=== PATIENT | female | born 1980 | race Two or more races ===

== ENCOUNTER 2023-05-08 22:46 | Observation (INO) | payer OTHER, SELFPAY ==
[2023-05-08 22:52] VITALS: PULSE 135; O2SAT 86
[2023-05-08 22:56] VITALS: BP 110/80; PULSE 126; RESP 32; TEMP 37; O2SAT 97
[2023-05-08 23:00] VITALS: PULSE 125; RESP 48; O2SAT 99
[2023-05-08 23:10] VITALS: O2SAT 99
--- NOTE | 2023-05-08 23:14 | ECG_ITS ---
[facility] Test Date: 2023-05-08 Pat Name: SARAH MACEDO Department: Room: - Gender: Female Neurology Nurse: : 1980 Requested By: Siva Blum Order Number: [id number] Reading MD: JUAN ANG Measurements Intervals [place] Rate: 137 P: 162 HI: 172 QRS: 86 QRSD: 76 T: 40 QT: 314 QTc: 394 Interpretive Statements 1220 Rapid atrial rhythm 3114 Cannot rule out anterior myocardial infarction, age undetermined 9150 abnormal ECG No previous ECG available for comparison Electronically Signed On 05-12-2023 7:43:44 EDT by JUAN ANG
--- NOTE | 2023-05-08 23:16 | XR_ITS ---
The [address] [address] Patient Name: SARAH MACEDO MRN: [id number] date: 1980 Sex: F Assigned Patient Location: ER Current Patient Location: ER Accession/Order Number: [id number] Exam Date: 05/08/2023 23:25 Report Date: 05/08/2023 23:41 At the request of: RINA PATEL Procedure: XR chest 1V EXAM: XR chest 1V HISTORY: chest pain, fever, shortness of breath COMPARISON: None. TECHNIQUE: AP view of the chest FINDINGS: The level of inspiration is suboptimal. There is no focal airspace consolidation. The cardiomediastinal silhouette is not enlarged. No evidence of pleural effusion or pneumothorax are identified. No acute osseous abnormality. IMPRESSION: No acute cardiopulmonary process. Recommend follow up imaging if symptoms worsen or persist. Electronically authenticated by: DINO MIKE Date: 05/08/2023 23:41
[2023-05-08 23:35] LABS: Bilirubin Urine NEGATIVE (NEGATIVE); Blood Urine LARGE (NEGATIVE); Clarity Urine CLEAR (CLEAR); Color Urine BROWN (YELLOW); Glucose Urine UA 500 mg/dL (NEGATIVE); Ketones Urine 15 mg/dL (NEGATIVE); Leukocyte Esterase Urine MODERATE (NEGATIVE); Nitrite Urine POSITIVE (NEGATIVE); Protein Urine >=300 mg/dL (NEG/TRACE); Specific Gravity Urine >=1.030 (1.005-1.025)
[2023-05-08] MEDS: 0.9 % SODIUM CHLORIDE 1,000 ML 999 ML IV (23:36)
[2023-05-08] MEDS: CEFTRIAXONE 1,000 MG in 0.9 % SODIUM CHLORIDE 50 ML 100 MG IV (23:36)
[2023-05-08 23:40] LABS: Urine Microscopic Indicated YES
[2023-05-08 23:43] VITALS: BP 124/87; O2SAT 100
--- NOTE | 2023-05-08 23:43 | ED.GENADUL1 ---
HPI - General Adult General Chief complaint: Fever Stated complaint: poss sepsis, tachycardia Time Seen by Provider: 05/08/23 23:11 Source: patient Mode of arrival: walk-in Limitations: no limitations History of Present Illness HPI narrative: patient presents with fever and fast HR. She is an insulin dependent diabetic. She said that she has not been taking her insulin as prescribed because I just haven't been feeling god . Chart review and discussion with the patient i learned that the patient had ureteral stenting for treatment of kidney stone April 19, 2023. She had UTI and finished a course of antibiotics. She had been experiencing dark urine and frequent urination since the ureteral stenting. She saw the urologist for follow up and is supposed to see them again next week. She has not been on any additional antibiotics. The fever and fast HR began this morning. She also felt pain across the chest and shortness of breath this morning. her family finally convinced her to come tot the ED for evaluation. Her PCP is in [place]. Related Data Home Medications Medication Instructions Recorded Confirmed dulaglutide 1.5 mg/0.5 mL mg subcut 05/09/23 subcutaneous pen injector (Trulicity) flash glucose sensor (FreeStyle 05/09/23 05/09/23 Parveen 2 Sensor kit) insulin glargine 100 unit/mL (3 unit subcut 05/09/23 mL) subcutaneous pen (Lantus Solostar U-100 Insulin) metformin 1,000 mg tablet mg 05/09/23 ondansetron 4 mg disintegrating mg 05/09/23 tablet oxybutynin chloride 5 mg tablet mg 05/09/23 pen needle, diabetic 31 gauge x 05/09/23 05/09/23 sumatriptan succinate 50 mg tablet mg PO 05/09/23 tamsulosin 0.4 mg capsule mg PO 05/09/23 Allergies Allergy/AdvReac Type Severity Reaction Status Date / Time metronidazole [From Flagyl] Allergy Mild Rash Verified 05/08/23 22:56 [facility] Medical History (Updated 05/09/23 @ 01:46 by Rina Patel) Exam Narrative Exam Narrative: Nurses notes and vital signs reviewed and patient is not hypoxic. afebrile General: Well-appearing and in no apparent distress. Skin: Warm, dry, no pallor noted. No rash. Head: Normocephalic, atraumatic. Neck: Supple, non-tender. Eye: Pupils are equal, round and EOMI. No scleral icterus. Ears, Nose, Mouth, and Throat: Oral mucosa is dry Cardiovascular: tachycardia. Respiratory: Tachypnea but no accessory muscle use or respiratory distress. Lungs are clear to auscultation, no wheezing, rales or rhonchi Chest Wall: no tenderness, crepitus or subcutaneous emphysema Back: No midline thoracic or lumbar vertebral tenderness. Left CVA tenderness Musculoskeletal: normal ROM, no calf or popliteal tenderness, no lower extremity edema/swelling GI: Abdomen is soft, non-distended. Normal bowel sounds. No masses appreciated. No tenderness to palpation. No rebound, guarding, or rigidity noted. Neurological: A&O x4. No cranial nerve dysfunction observed. No truncal ataxia. Moves all extremities. Sensation intact. Psychiatric: Cooperative and interactive. Normal mood and affect. Constitutional Vital Signs - 24 hr 05/08/23 22:56 05/08/23 23:49 05/09/23 01:08 Temperature 98.6 F 97.6 F Pulse Rate Pulse Rate [Monitor] 126 H Respiratory Rate 32 H Blood Pressure 110/60 Blood Pressure [Right Arm] 110/80 H Pulse Oximetry 97 97 Oxygen Delivery Method Room Air Room Air 05/08/23 22:52 05/08/23 23:00 05/08/23 23:10 Temperature Pulse Rate 135 H 125 H Pulse Rate [Monitor] Respiratory Rate 48 H Blood Pressure Blood Pressure [Right Arm] Pulse Oximetry 86 L 99 99 Oxygen Delivery Method 05/08/23 23:43 05/08/23 23:43 05/09/23 00:12 Temperature Pulse Rate 119 H Pulse Rate [Monitor] Respiratory Rate 20 Blood Pressure 124/87 H 124/62 H Blood Pressure [Right Arm] Pulse Oximetry 100 Oxygen Delivery Method 05/09/23 00:37 05/09/23 00:40 05/09/23 00:50 Temperature Pulse Rate 109 H 111 H 108 H Pulse Rate [Monitor] Respiratory Rate 22 16 11 L Blood Pressure Blood Pressure [Right Arm] Pulse Oximetry Oxygen Delivery Method 05/09/23 01:00 05/09/23 01:10 05/09/23 01:20 Temperature Pulse Rate 101 H 103 H 101 H Pulse Rate [Monitor] Respiratory Rate 15 17 18 Blood Pressure Blood Pressure [Right Arm] Pulse Oximetry Oxygen Delivery Method 05/09/23 01:30 Temperature Pulse Rate 105 H Pulse Rate [Monitor] Respiratory Rate 19 Blood Pressure Blood Pressure [Right Arm] Pulse Oximetry Oxygen Delivery Method Course Vital Signs Vital signs: Vital Signs Pulse Rate 135 H 05/08/23 22:52 Pulse Oximetry 86 L 05/08/23 22:52 Temperature 97.6 F 05/09/23 01:08 Pulse Rate 105 H 05/09/23 01:30 Respiratory Rate 19 05/09/23 01:30 Blood Pressure 110/60 05/09/23 01:08 Pulse Oximetry 97 05/08/23 23:49 Oxygen Delivery Method Room Air 05/08/23 23:49 Medical Decision Making MDM Narrative Medical decision making narrative: Patient was placed on secured entrance monitor and EKG obtained. Blood drawn and sent for evaluation, including lactate and blood cultures presents protocol. chest x-ray obtained. The patient received normal saline IV fluid and IV Rocephin. WBC elevated at 12k. Left shift noted. Lactate elevated at 4.4. UA reveals acute UTI. She was ordered to receive a 2nd liter of NS IVF and Levaquin 750mg. D-dimer elevated so she was sent for CT angio chest. K+ 2.9. Glucose elevated >300. She is not in DKA. She was ordered to receive 8units regular insulin SQ. The patient's HR and RR improved following ED treatment. CTA chest negative for PE, pneumonia or other acute cardiopulmonary abnormality I informed the patient of her results and discussed her diagnosis and recommendation for admission. Her PCP is in [place] and does not come to [facility] so she will be admitted to Dr Jackson's service. Plan was to place a call to Dr Cardenas - the on-call telehospitalist - to discuss admission once the CTA was resulted. Dr Cardenas contacted @ [phone] to discuss the patient's case. I spoke with her @ [phone] and she agreed to have the patient admitted - requested obs stay on med/surg w telemetry. Medical Records Medical records reviewed: Yes I reviewed the patient's medical records Lab Data Lab results reviewed: Yes I reviewed the patient's lab results Labs: Lab Results 05/08/23 05/08/23 05/08/23 Range/Units 23:10 23:35 23:40 WBC 12.3 H (4.0-11.0) 10^3/uL RBC 4.23 (4.20-5.40) 10^6/uL Hgb 10.9 L (12.0-16.0) g/dL Hct 33.8 L (36.0-48.0) % MCV 79.9 L (81.0-99.0) fL MCH 25.8 L (26.7-34.0) pg MCHC 32.2 (29.9-35.2) g/dL RDW 15.7 H (11.0-15.0) % Plt Count 343 (150-450) 10^3/uL MPV 10.7 (9.5-13.5) fL Neut % (Auto) 82.9 H (43.0-75.0) % Lymph % (Auto) 9.4 L (20.5-60.0) % [place] % (Auto) 6.4 (1.7-12.0) % Eos % (Auto) 0.4 L (0.9-7.0) % Baso % (Auto) 0.2 (0.2-2.0) % Neut # (Auto) 10.2 H (1.4-6.5) 10^3/uL Lymph # (Auto) 1.2 (1.2-3.8) 10^3/uL [place] # (Auto) 0.8 (0.3-0.8) 10^3/uL Eos # (Auto) 0.1 (0.0-0.7) 10^3/uL Baso # (Auto) 0.0 (0.0-0.1) 10^3/uL Abs Immat Gran (auto) 0.08 H (0.00-0.03) 10^3/uL Imm/Tot Granulo (auto) 0.7 H (0.0-0.5) % D-Dimer 0.94 H* (<=0.59) mg/L FEU Sodium 132 L (136-145) mmol/L Potassium 2.9 L* (3.5-5.1) mmol/L Chloride 99 (98-107) mmol/L Carbon Dioxide 18.7 L (21.0-32.0) mmol/L Anion Gap 17.2 BUN 9.0 (7.0-18.0) mg/dL Creatinine 1.06 H (0.55-1.02) mg/dL Est GFR ( Amer) >60 (>=60) Est GFR (Non-Af Amer) 57 L (>=60) BUN/Creatinine Ratio 8.5 Glucose 332 H (74-106) mg/dL Lactate 4.4 H* (0.4-2.0) mmol/L Calcium 8.7 (8.5-10.1) mg/dL Total Bilirubin 0.7 (0.2-1.0) mg/dL AST 13 L (15-37) U/L ALT 17 (14-59) U/L Alkaline Phosphatase 94 (46-116) U/L Total Protein 7.6 (6.4-8.2) g/dL Albumin 3.1 L (3.4-5.0) g/dL Globulin 4.5 g/dL Albumin/Globulin Ratio 0.7 Urine Color Brown A (YELLOW) Urine Clarity Clear (CLEAR) Urine pH 6.0 (5.0-9.0) Ur Specific [place] >=1.030 A (1.005-1.025) Urine Protein >=300 A (NEG/TRACE) mg/dL Urine Glucose (UA) 500 A (NEGATIVE) mg/dL Urine Ketones 15 A (NEGATIVE) mg/dL Urine Occult Blood Large A (NEGATIVE) Urine Nitrite Positive A (NEGATIVE) Urine Bilirubin Negative (NEGATIVE) Urine Urobilinogen 1.0 (0.2-1.0) EU/dL Ur Leukocyte Esterase Moderate A (NEGATIVE) Urine RBC 10-20 A (0-2) #/HPF Urine WBC 20-50 A (NONE SEEN) #/HPF Ur Squamous Epith Cells Rare (NONE/RARE) #/LPF Urine Crystals None seen (None Seen) #/HPF Urine Bacteria Small A (NONE SEEN) #/HPF Urine Casts None seen (NONE SEEN) #/LPF Urine Mucus Moderate A (NONE SEEN) Ur Culture Indicated? Yes Imaging Data Chest x-ray: Attestation: I have reviewed the pertinent imaging results. Radiologist's impression: Patient Name: SARAH MACEDO MRN: [id number] date: 1980 Sex: F Assigned Patient Location: ER Current Patient Location: ER Accession/Order Number: [id number] Exam Date: 05/08/2023 23:25 Report Date: 05/08/2023 23:41 At the request of: RINA PATEL Procedure: XR chest 1V EXAM: XR chest 1V HISTORY: chest pain, fever, shortness of breath COMPARISON: None. TECHNIQUE: AP view of the chest FINDINGS: The level of inspiration is suboptimal. There is no focal airspace consolidation. The cardiomediastinal silhouette is not enlarged. No evidence of pleural effusion or pneumothorax are identified. No acute osseous abnormality. IMPRESSION: No acute cardiopulmonary process. Recommend follow up imaging if symptoms worsen or persist. Electronically authenticated by: DINO MIKE Date: 05/08/2023 23:41 cta chest: Radiologist's impression: Patient Name: SARAH MACEDO MRN: [id number] date: 1980 Sex: F Assigned Patient Location: ER Current Patient Location: ER Accession/Order Number: [id number] Exam Date: 05/09/2023 00:25 Report Date: 05/09/2023 01:37 At the request of: RINA PATEL Procedure: CT angio chest CT angio chest: 05/09/2023 12:25 AM EDT CLINICAL HISTORY: 42 years old Female with chest pain, elevated d-dimer. TECHNIQUE: CT angio chest was performed with axial CT images through the thorax as well as sagittal and coronal reformations also obtained after intravenous administration of contrast. Dose reduction techniques were achieved by using automated exposure control and/or adjustment of mA and/or kV according to patient size and/or use of iterative reconstruction technique. COMPARISON: Chest x-ray performed on this date. FINDINGS: The pulmonary arteries are well opacified with no evidence of filling defect to suggest pulmonary embolism. The thoracic aorta is normal in course and caliber without aneurysm or dissection. The heart appears normal with no evidence of pericardial effusion. There are no enlarged mediastinal lymph nodes. The tracheobronchial tree is patent. The lungs are clear. There is no consolidation, mass or pleural effusion. There is no pneumothorax. Cholecystectomy clips are present with the gallbladder surgically absent. The visualized portion of the upper abdomen is otherwise grossly unremarkable. The osseous structures are unremarkable. IMPRESSION: Normal CT thorax. No pulmonary embolus identified. Electronically authenticated by: ELOISA BURNHAM Date: 05/09/2023 01:37 ECG Data Interpretation: EKG interpretation: Emergency Department physician interpretation. Sinus tach at 137bpm. Normal axis, normal intervals and no ST segment elevation or depression. Discharge Plan Discharge Chief Complaint: Fever Clinical Impression: UTI (urinary tract infection), Hyperglycemia due to diabetes mellitus, Sepsis, Acute hypokalemia Patient Disposition: Admitted as Observation Time of Disposition Decision: 00:43
[2023-05-08 23:45] LABS: Bacteria Urine SMALL #/HPF (NONE SEEN); Crystals Seen? None Seen #/HPF (None Seen); Mucus Urine MODERATE (NONE SEEN); Squamous Epithelial Cell Urine RARE #/LPF (NONE/RARE); WBC Urine 20-50 #/HPF (NONE SEEN)
[2023-05-08 23:46] LABS: Cast Seen? NONE SEEN #/LPF (NONE SEEN); Urine Culture Indicated YES
[2023-05-08 23:49] VITALS: O2SAT 97
--- NOTE | 2023-05-08 23:55 | PC.NURSE ---
tachycardia imporoved. patient 111 compared to 150 at admission. blood pressure within normal range.
[2023-05-08 23:56] LABS: Hematocrit 33.8 % (36.0-48.0); Hemoglobin 10.9 g/dL (12.0-16.0); Mean Corpuscular Hemoglobin 25.8 pg (26.7-34.0); Mean Corpuscular Volume 79.9 fL (81.0-99.0); Red Blood Count 4.23 10^6/uL (4.20-5.40); White Blood Count 12.3 10^3/uL (4.0-11.0)
[2023-05-08 23:57] LABS: Basophils Percent Auto 0.2 % (0.2-2.0); Eosinophils Percent Auto 0.4 % (0.9-7.0); Immature Granulocytes Pct Auto 0.7 % (0.0-0.5); Lymphocytes Absolute Auto 1.2 10^3/uL (1.2-3.8); Lymphocytes Percent Auto 9.4 % (20.5-60.0); Mean Corpuscular HGB Conc 32.2 g/dL (29.9-35.2); Mean Platelet Volume 10.7 fL (9.5-13.5); Monocytes Percent Auto 6.4 % (1.7-12.0); Neutrophils Absolute Auto 10.2 10^3/uL (1.4-6.5); Neutrophils Percent Auto 82.9 % (43.0-75.0); Platelet Count 343 10^3/uL (150-450); Red Cell Distribution Width 15.7 % (11.0-15.0)
[2023-05-08 23:58] LABS: Eosinophils Absolute Auto 0.1 10^3/uL (0.0-0.7); Immature Granulocytes Abs Auto 0.08 10^3/uL (0.00-0.03); Monocytes Absolute Auto 0.8 10^3/uL (0.3-0.8)
[2023-05-09] VITALS (27 sets, daily range): BP systolic 108–124; BP diastolic 60–80; PULSE 94–119; RESP 11–23; TEMP 36.4–37.2; O2SAT 95–100; BMI 31.7
[2023-05-09 00:03] LABS: D Dimer 0.94 mg/L FEU (<=0.59)
--- NOTE | 2023-05-09 00:03 | CT_ITS ---
The [address] [address] Patient Name: SARAH MACEDO MRN: [id number] date: 1980 Sex: F Assigned Patient Location: ER Current Patient Location: Accession/Order Number: [id number] Exam Date: 05/09/2023 00:25 Report Date: 05/09/2023 01:37 At the request of: RINA PATEL Procedure: CT angio chest CT angio chest: 05/09/2023 12:25 AM EDT CLINICAL HISTORY: 42 years old Female with chest pain, elevated d-dimer. TECHNIQUE: CT angio chest was performed with axial CT images through the thorax as well as sagittal and coronal reformations also obtained after intravenous administration of contrast. Dose reduction techniques were achieved by using automated exposure control and/or adjustment of mA and/or kV according to patient size and/or use of iterative reconstruction technique. COMPARISON: Chest x-ray performed on this date. FINDINGS: The pulmonary arteries are well opacified with no evidence of filling defect to suggest pulmonary embolism. The thoracic aorta is normal in course and caliber without aneurysm or dissection. The heart appears normal with no evidence of pericardial effusion. There are no enlarged mediastinal lymph nodes. The tracheobronchial tree is patent. The lungs are clear. There is no consolidation, mass or pleural effusion. There is no pneumothorax. Cholecystectomy clips are present with the gallbladder surgically absent. The visualized portion of the upper abdomen is otherwise grossly unremarkable. The osseous structures are unremarkable. IMPRESSION: Normal CT thorax. No pulmonary embolus identified. Electronically authenticated by: ELOISA BURNHAM Date: 05/09/2023 01:37
[2023-05-09 00:06] LABS: Alanine Aminotransferase 17 U/L (14-59); Albumin Globulin Ratio 0.7; Albumin Level 3.1 g/dL (3.4-5.0); Alkaline Phosphatase 94 U/L (46-116); Aspartate Amino Transferase 13 U/L (15-37); BUN Creatinine Ratio 8.5; Bilirubin Total 0.7 mg/dL (0.2-1.0); Calcium 8.7 mg/dL (8.5-10.1); Carbon Dioxide 18.7 mmol/L (21.0-32.0); Estimated GFR (African America >60 (>=60); Estimated GFR (Non-African Ame 57 (>=60); Globulin 4.5 g/dL; Glucose 332 mg/dL (74-106); Total Protein 7.6 g/dL (6.4-8.2)
[2023-05-09 00:17] LABS: Lactate/Lactic Acid 4.4 mmol/L (0.4-2.0)
--- NOTE | 2023-05-09 00:40 | PC.NURSE ---
sepsis alert checklist complete. nursing operations supervisor chemical cleaning aware
[2023-05-09] MEDS: INSULIN REGULAR 300 UNITS/3 ML 8 UNIT SUBQ (00:51)
[2023-05-09 00:58] LABS: Sodium 132 mmol/L (136-145)
[2023-05-09 00:59] LABS: Anion Gap 17.2; Chloride 99 mmol/L (98-107); Potassium 2.9 mmol/L (3.5-5.1)
[2023-05-09] MEDS: LEVOFLOXACIN 750 MG TABLET PO (01:03)
[2023-05-09] MEDS: 0.9 % SODIUM CHLORIDE 1,000 ML 1000 ML IV (01:04)
[2023-05-09 02:48] LABS: Lactate/Lactic Acid 1.6 mmol/L (0.4-2.0)
[2023-05-09 02:51] LABS: Glucometer 128 mg/dL (74-106)
[2023-05-09] MEDS: 0.9 % SODIUM CHLORIDE 1,000 ML 125 ML IV (03:00)
--- NOTE | 2023-05-09 05:47 | P.PN_ITS ---
Progress Note: Subjective Subjective Interval history: Pt is a 42F with ho IDDM, recurrent left sided kidney stones presenting with c/o palpiations, fever, and ongoing left flank discomfort. Pt reports h/o req 2 ureteral stents in the past. She follows with urology D Kate and just recently underwent stent placement on the left side on 04/19/23. She was also tx with a course of abx for uti at that time as well. Since that procedire, pt states that she has been laying around and mostly in bed therefor she decided to staop taking all of her diabetes meds asshe felt that she didnt need then when she wasnt eating much or feeling well.She denies any dysuria but does have flank pain and reports that the stent is uncomfortable for her. She dev a fever and chills about 2 days ago but doesnt recall how high her fever was. Given her sx with ongoing palpitations, family encouraged pt to go to ED. Vitals hr 130s, a febrile. labs noted for wbc 12.3,hb 10.9, ddimer 0.93, Na 132, k 2.9, bicarb 18, Cr 1.06, gLUC 332, La 4.4. aBNML UA noted today.EKG sinus tachy 137,no obviouis T changes anteriorly. CXR neg, CTA chest neg for pe. Treated in Ed with 2 L ivf,rocephin given first, then recvd Levaquin, also inslin and ivf. repeat gluc 128 Exam Constitutional Vital Signs - 24 hr 05/08/23 22:56 05/08/23 23:49 05/09/23 01:08 Temperature 98.6 F 97.6 F Pulse Rate Pulse Rate [Monitor] 126 H Respiratory Rate 32 H Blood Pressure 110/60 Blood Pressure [Left Arm] Blood Pressure [Right Arm] 110/80 H Pulse Oximetry 97 97 Oxygen Delivery Method Room Air Room Air 05/08/23 22:52 05/08/23 23:00 05/08/23 23:10 Temperature Pulse Rate 135 H 125 H Pulse Rate [Monitor] Respiratory Rate 48 H Blood Pressure Blood Pressure [Left Arm] Blood Pressure [Right Arm] Pulse Oximetry 86 L 99 99 Oxygen Delivery Method 05/08/23 23:43 05/08/23 23:43 05/09/23 00:12 Temperature Pulse Rate 119 H Pulse Rate [Monitor] Respiratory Rate 20 Blood Pressure 124/87 H 124/62 H Blood Pressure [Left Arm] Blood Pressure [Right Arm] Pulse Oximetry 100 Oxygen Delivery Method 05/09/23 00:37 05/09/23 00:40 05/09/23 00:50 Temperature Pulse Rate 109 H 111 H 108 H Pulse Rate [Monitor] Respiratory Rate 22 16 11 L Blood Pressure Blood Pressure [Left Arm] Blood Pressure [Right Arm] Pulse Oximetry Oxygen Delivery Method 05/09/23 01:00 05/09/23 01:10 05/09/23 01:20 Temperature Pulse Rate 101 H 103 H 101 H Pulse Rate [Monitor] Respiratory Rate 15 17 18 Blood Pressure Blood Pressure [Left Arm] Blood Pressure [Right Arm] Pulse Oximetry Oxygen Delivery Method 05/09/23 01:30 05/09/23 01:40 05/09/23 01:50 Temperature Pulse Rate 105 H 104 H 101 H Pulse Rate [Monitor] Respiratory Rate 19 21 19 Blood Pressure Blood Pressure [Left Arm] Blood Pressure [Right Arm] Pulse Oximetry Oxygen Delivery Method 05/09/23 02:00 05/09/23 02:10 05/09/23 02:20 Temperature Pulse Rate 103 H 106 H 97 H Pulse Rate [Monitor] Respiratory Rate 23 21 17 Blood Pressure Blood Pressure [Left Arm] Blood Pressure [Right Arm] Pulse Oximetry 99 98 97 Oxygen Delivery Method 05/09/23 02:30 05/09/23 03:26 05/09/23 03:13 Temperature 97.7 F 97.7 F Pulse Rate 97 H 101 H 101 H Pulse Rate [Monitor] Respiratory Rate 14 18 18 Blood Pressure Blood Pressure [Left Arm] 118/80 H 118/80 H Blood Pressure [Right Arm] 110/80 H Pulse Oximetry 100 97 97 Oxygen Delivery Method Room Air Room Air 05/09/23 03:13 05/09/23 02:53 05/09/23 05:30 Temperature 97.7 F 99 F Pulse Rate 101 H 109 H Pulse Rate [Monitor] 101 H Respiratory Rate 18 20 Blood Pressure Blood Pressure [Left Arm] 118/80 H 120/75 H Blood Pressure [Right Arm] 110/80 H Pulse Oximetry 97 97 96 Oxygen Delivery Method Room Air Room Air Room Air 05/09/23 05:32 Temperature 99 F Pulse Rate 109 H Pulse Rate [Monitor] Respiratory Rate 20 Blood Pressure Blood Pressure [Left Arm] 120/75 H Blood Pressure [Right Arm] Pulse Oximetry 96 Oxygen Delivery Method Room Air Common normals: no apparent distress, average body habitus and oriented x3 Exam limitations: altered mental status HENUT Common normals: normocephalic and head/scalp atraumatic Respiratory Common normals: normal respiratory effort and no retractions Effort & inspection: able to speak in complete sentences Auscultation: clear to auscultation bilaterally Cardio Common normals: regular rate, regular rhythm, S1 normal heart sound and S2 normal heart sound GI Inspection: normal to inspection Auscultation: normoactive bowel sounds Palpation: soft Other: L CVA TTP Extremity Common normals: normal to inspection, full ROM and no pedal edema Neuro Common normals: oriented x3, CN's II-XII intact bilaterally, moves all extremities, no focal motor deficits and no sensory deficits noted Psych Common normals: mental status grossly normal, thought process normal and cooperative Appearance: grossly normal Attitude: calm Insight: insight good Judgement: judgment good Progress Note: Objective Labs Labs: Short CBC 05/08/23 Range/Units 23:35 WBC 12.3 H (4.0-11.0) 10^3/uL Hgb 10.9 L (12.0-16.0) g/dL Hct 33.8 L (36.0-48.0) % Plt Count 343 (150-450) 10^3/uL BMP 05/08/23 23:35 Sodium 132 L Potassium 2.9 L* Chloride 99 Carbon Dioxide 18.7 L BUN 9.0 Creatinine 1.06 H Glucose 332 H Calcium 8.7 Liver Function 05/08/23 Range/Units 23:35 Total Bilirubin 0.7 (0.2-1.0) mg/dL AST 13 L (15-37) U/L ALT 17 (14-59) U/L Alkaline Phosphatase 94 (46-116) U/L Albumin 3.1 L (3.4-5.0) g/dL Urine 05/08/23 Range/Units 23:10 Urine Color Brown A (YELLOW) Urine Clarity Clear (CLEAR) Urine pH 6.0 (5.0-9.0) Ur Specific [place] >=1.030 A (1.005-1.025) Urine Protein >=300 A (NEG/TRACE) mg/dL Urine Glucose (UA) 500 A (NEGATIVE) mg/dL Progress Note: A&P Assessment and Plan (1) UTI (urinary tract infection): (2) Hyperglycemia due to diabetes mellitus: (3) Sepsis: (4) Acute hypokalemia: (5) Diabetes: (6) Kidney stones: Plan UTI Severe Sepsis S/P L ureteral stent 04/[address] Love Uncontrolled DM Hypo K HypoNa, coreected Na normal for gluc Abnml EKG Mild GINA with mild MA Elevated ddimer Plan: cont rocephin pend Ucx, bcx ivf serial LA until normal, chk Procalcitonin rechk BMP now to fu on electrolyes SSI Given how rapidly gluc correctd, will hold off on adding basal insulin just yet and monitor the rned chk troponin monitor cr to f/u Dr Love next wk with plans for lithotripsy CTA neg for pe dvt p/x heparin full code Telemedicine Attestation Telemedicine Attestation I conducted this encounter from [MD] via secure live, [id number] video conference with the patient, CHARGE TEST-CHARGES located at [facility] with []. Prior to the interview, the risks and benefits of telemedicine were discussed with the patient and verbal consent was obtained.
[2023-05-09] MEDS: TAMSULOSIN HCL 0.4 MG CAPSULE PO (07:00)
[2023-05-09 07:13] LABS: Hematocrit 29.9 % (36.0-48.0); Hemoglobin 9.4 g/dL (12.0-16.0); Mean Corpuscular HGB Conc 31.4 g/dL (29.9-35.2); Mean Corpuscular Hemoglobin 25.3 pg (26.7-34.0); Mean Corpuscular Volume 80.6 fL (81.0-99.0); Platelet Count 273 10^3/uL (150-450); Red Blood Count 3.71 10^6/uL (4.20-5.40); Red Cell Distribution Width 15.7 % (11.0-15.0); White Blood Count 13.1 10^3/uL (4.0-11.0)
[2023-05-09 07:30] LABS: Anion Gap 14.7; BUN Creatinine Ratio 7.3; Calcium 7.7 mg/dL (8.5-10.1); Carbon Dioxide 20.5 mmol/L (21.0-32.0); Chloride 105 mmol/L (98-107); Estimated GFR (African America >60 (>=60); Estimated GFR (Non-African Ame >60 (>=60); Glucose 137 mg/dL (74-106); Potassium 3.2 mmol/L (3.5-5.1); Sodium 137 mmol/L (136-145); Troponin I High Sensitivity <4.0 pg/mL (4.0-51.3)
--- NOTE | 2023-05-09 07:31 | CT_ITS ---
[address] [address] Patient Name: SARAH MACEDO MRN: [id number] date: 1980 Sex: F Assigned Patient Location: MS Current Patient Location: MS Accession/Order Number: [id number] Exam Date: 05/09/2023 07:52 Report Date: 05/09/2023 08:12 At the request of: SHAIKH JOHNATHAN Procedure: CT abdomen pelvis wo con EXAMINATION: CT abdomen pelvis wo con HISTORY: Abdominal pain , fever, recent stent placement, history of kidney stones COMPARISON: No relevant comparison available. TECHNIQUE: Axial, Coronal, and Sagittal images were obtained without and/or with IV contrast as indicated by examination type. Dose reduction techniques were achieved by using automated exposure control and/or adjustment of mA and/or kV according to patient size and/or use of iterative reconstruction technique. FINDINGS: LUNG BASES: No visible pulmonary or pleural disease. LIVER: No enlargement, atrophy, suspicious density, or significant focal lesion. BILIARY: Cholecystectomy. PANCREAS: No lesion, fluid collection, or abnormal duct dilatation. SPLEEN: No enlargement or focal lesion. ADRENALS: No mass or enlargement. KIDNEYS: Left ureteral stent. Contrast within kidneys and urinary bladder from another CT study performed 7 hours ago. Mild edema or inflammatory changes surrounding the distal left ureter. No mass, obstruction, or calcification. BOWEL/MESENTERY: Multiple fluid-filled loops of small bowel without abnormal dilation or obstruction. Normal appendix. No visible mass, obstruction, or bowel wall thickening. AORTA/VASCULAR: No aneurysm or dissection. RETROPERITONEUM: No mass or adenopathy. LYMPH NODES: No adenopathy. URINARY BLADDER: Small-moderate amount of free air within urinary bladder. No wall thickening or appreciable stones; bladder is filled with contrast from prior CT study. PELVIC ORGANS: No visible mass. Pelvic organs appropriate for patient age. ABDOMINAL WALL: Small fat filled paraumbilical hernia without strangulation. BONES: No bony lesion or fracture. OTHER: Negative. IMPRESSION: 1.Left ureteral stent with moderate edema/inflammatory changes surrounding the distal left ureter of uncertain etiology. This may be secondary to a recently passed stone or secondary to stent placement. No free fluid. 2.Multiple fluid-filled loops of bowel without abnormal dilation; possible mild enteritis. 3.Free air within urinary bladder; recent catheterization versus cystitis. 4.Small fat filled periumbilical hernia without strangulation or appreciable acute findings. Electronically authenticated by: ETHAN BREWER Date: 05/09/2023 08:12
[2023-05-09] MEDS: INSULIN DETEMIR 300 UNIT/3 ML INSULN.PEN 20 UNIT SUBQ (09:16)
[2023-05-09] MEDS: CEFTRIAXONE 1,000 MG in 0.9 % SODIUM CHLORIDE 50 ML 100 MG IV (09:16)
[2023-05-09 11:15] LABS: Glucometer 186 mg/dL (74-106)
--- NOTE | 2023-05-09 13:06 | CM.NOTE ---
Rounds made with Dr. Jackson. Dr. Jackson explained he would like Mikayla to continue with IV antibiotics for at least another day-if not longer. He would also like to talk to Urology regarding stent and their current plans. Mikayla verbalizes understanding of all Dr. Jackson discussed with her.
--- NOTE | 2023-05-09 13:39 | P.HP_ITS ---
H&P: HPI History of Present Illness Chief complaint: Sepsis/flank pain Narrative: 42 y o female with hx of recurrent renal stones presented last night with fever,chills, malaise, weakness, elevated HR and left flank pain. She also felt SOB and had chest tightness. She had left ureteral stent placed for left uret eral stone about 3 weeks ago and scheduled for stent removal next week on Friday. She reports hematuria, poor urine output, dysuria and left flank pain since stent placement. Last night, all of a sudden, she started to experience fevers and chills and her smart watch alarmed her of elevated HR in 130s. Patient was admitted overnight for sepsis sec to UTI and started on IVF and IV abx Patient of note, has not been using her insulin or oral meds for her DM2 for unclear reason since stent placement. She feels well today and was adamant that she is ready to go home today. All of her symptoms are more or less resolved Review of Systems ROS Status of ROS 10 or more systems reviewed and unremarkable except as noted in history and below [facility] [place] Medical History (Updated 05/09/23 @ 13:51 by Shaikh Renetta MD) Social History Do you think of yourself as: straight/heterosexual Gender Identity: female Meds Home Medications and Allergies Home Medications Medication Instructions Recorded Confirmed Type dulaglutide 1.5 mg/0.5 mL mg subcut 05/09/23 History subcutaneous pen injector (Trulicity) flash glucose sensor (FreeStyle 05/09/23 05/09/23 History Parveen 2 Sensor kit) insulin glargine 100 unit/mL (3 unit subcut 05/09/23 History mL) subcutaneous pen (Lantus Solostar U-100 Insulin) metformin 1,000 mg tablet mg 05/09/23 History ondansetron 4 mg disintegrating mg 05/09/23 History tablet oxybutynin chloride 5 mg tablet mg 05/09/23 History pen needle, diabetic 31 gauge x 05/09/23 05/09/23 History sumatriptan succinate 50 mg tablet mg PO 05/09/23 History tamsulosin 0.4 mg capsule mg PO 05/09/23 History Allergies Allergy/AdvReac Type Severity Reaction Status Date / Time metronidazole [From Flagyl] Allergy Mild Rash Verified 05/08/23 22:56 Exam Constitutional Vital Signs - 24 hr 05/08/23 22:56 05/08/23 23:49 05/09/23 01:08 Temperature 98.6 F 97.6 F Pulse Rate Pulse Rate [Monitor] 126 H Respiratory Rate 32 H Blood Pressure 110/60 Blood Pressure [Left Arm] Blood Pressure [Right Arm] 110/80 H Pulse Oximetry 97 97 Oxygen Delivery Method Room Air Room Air 05/08/23 22:52 05/08/23 23:00 05/08/23 23:10 Temperature Pulse Rate 135 H 125 H Pulse Rate [Monitor] Respiratory Rate 48 H Blood Pressure Blood Pressure [Left Arm] Blood Pressure [Right Arm] Pulse Oximetry 86 L 99 99 Oxygen Delivery Method 05/08/23 23:43 05/08/23 23:43 05/09/23 00:12 Temperature Pulse Rate 119 H Pulse Rate [Monitor] Respiratory Rate 20 Blood Pressure 124/87 H 124/62 H Blood Pressure [Left Arm] Blood Pressure [Right Arm] Pulse Oximetry 100 Oxygen Delivery Method 05/09/23 00:37 05/09/23 00:40 05/09/23 00:50 Temperature Pulse Rate 109 H 111 H 108 H Pulse Rate [Monitor] Respiratory Rate 22 16 11 L Blood Pressure Blood Pressure [Left Arm] Blood Pressure [Right Arm] Pulse Oximetry Oxygen Delivery Method 05/09/23 01:00 05/09/23 01:10 05/09/23 01:20 Temperature Pulse Rate 101 H 103 H 101 H Pulse Rate [Monitor] Respiratory Rate 15 17 18 Blood Pressure Blood Pressure [Left Arm] Blood Pressure [Right Arm] Pulse Oximetry Oxygen Delivery Method 05/09/23 01:30 05/09/23 01:40 05/09/23 01:50 Temperature Pulse Rate 105 H 104 H 101 H Pulse Rate [Monitor] Respiratory Rate 19 21 19 Blood Pressure Blood Pressure [Left Arm] Blood Pressure [Right Arm] Pulse Oximetry Oxygen Delivery Method 05/09/23 02:00 05/09/23 02:10 05/09/23 02:20 Temperature Pulse Rate 103 H 106 H 97 H Pulse Rate [Monitor] Respiratory Rate 23 21 17 Blood Pressure Blood Pressure [Left Arm] Blood Pressure [Right Arm] Pulse Oximetry 99 98 97 Oxygen Delivery Method 05/09/23 02:30 05/09/23 03:26 05/09/23 03:13 Temperature 97.7 F 97.7 F Pulse Rate 97 H 101 H 101 H Pulse Rate [Monitor] Respiratory Rate 14 18 18 Blood Pressure Blood Pressure [Left Arm] 118/80 H 118/80 H Blood Pressure [Right Arm] 110/80 H Pulse Oximetry 100 97 97 Oxygen Delivery Method Room Air Room Air 05/09/23 03:13 05/09/23 02:53 05/09/23 05:30 Temperature 97.7 F 99 F Pulse Rate 101 H 109 H Pulse Rate [Monitor] 101 H Respiratory Rate 18 20 Blood Pressure Blood Pressure [Left Arm] 118/80 H 120/75 H Blood Pressure [Right Arm] 110/80 H Pulse Oximetry 97 97 96 Oxygen Delivery Method Room Air Room Air Room Air 05/09/23 05:32 05/09/23 06:25 05/09/23 08:13 Temperature 99 F Pulse Rate 109 H 107 H 106 H Pulse Rate [Monitor] Respiratory Rate 20 Blood Pressure Blood Pressure [Left Arm] 120/75 H Blood Pressure [Right Arm] Pulse Oximetry 96 Oxygen Delivery Method Room Air 05/09/23 10:06 05/09/23 12:00 Temperature Pulse Rate 113 H 94 H Pulse Rate [Monitor] Respiratory Rate Blood Pressure Blood Pressure [Left Arm] Blood Pressure [Right Arm] Pulse Oximetry Oxygen Delivery Method Documenting provider has reviewed patient's vital signs: yes Common normals: no apparent distress and healthy appearing HENMT Common normals: normocephalic and head/scalp atraumatic Respiratory Common normals: normal respiratory effort, no use of accessory muscles and clear to auscultation bilaterally Cardio Common normals: no JVD, regular rate, S1 normal heart sound and S2 normal heart sound GI Common normals: Normal to inspection, nondistended, normoactive bowel sounds present, soft to palpation, non-tender and no hepatosplenomegaly Other: left CVA tenderness Back & Pelvis General back: CVA tenderness CVA tenderness: left Extremity Common normals: normal to inspection and full ROM Neuro Common normals: oriented x3, moves all extremities, no focal motor deficits and no sensory deficits noted Psych Common normals: mental status grossly normal, thought process normal, cooperative, denies homicidal ideation and denies suicidal ideation Results Labs Labs: Short CBC 05/08/23 05/09/23 Range/Units 23:35 06:55 WBC 12.3 H 13.1 H (4.0-11.0) 10^3/uL Hgb 10.9 L 9.4 L (12.0-16.0) g/dL Hct 33.8 L 29.9 L (36.0-48.0) % Plt Count 343 273 (150-450) 10^3/uL BMP 05/08/23 05/09/23 23:35 06:55 Sodium 132 L 137 Potassium 2.9 L* 3.2 L Chloride 99 105 Carbon Dioxide 18.7 L 20.5 L BUN 9.0 4.0 L Creatinine 1.06 H 0.55 Glucose 332 H 137 H Calcium 8.7 7.7 L Liver Function 05/08/23 Range/Units 23:35 Total Bilirubin 0.7 (0.2-1.0) mg/dL AST 13 L (15-37) U/L ALT 17 (14-59) U/L Alkaline Phosphatase 94 (46-116) U/L Albumin 3.1 L (3.4-5.0) g/dL Urine 05/08/23 Range/Units 23:10 Urine Color Brown A (YELLOW) Urine Clarity Clear (CLEAR) Urine pH 6.0 (5.0-9.0) Ur Specific [place] >=1.030 A (1.005-1.025) Urine Protein >=300 A (NEG/TRACE) mg/dL Urine Glucose (UA) 500 A (NEGATIVE) mg/dL Assessment and Plan Assessment and Plan (1) Sepsis: Assessment and Plan: HR > 90, WBC> 13 K. Stable hemodynamics now. C/w IVF. F.u urine and blood cx. C/w IV rocephin Qualifiers: Sepsis type: sepsis due to unspecified organism Sepsis acute organ dysfunction status: without acute organ dysfunction Qualified Code(s): A41.9 - Sepsis, unspecified organism (2) UTI (urinary tract infection): Assessment and Plan: associated with recent ureteral stent and renal stone. On IVF and rocephin Urology on board. Qualifiers: Urinary tract infection type: site unspecified Hematuria presence: with hematuria Qualified Code(s): N39.0 - Urinary tract infection, site not specified; R31.9 - Hematuria, unspecified (3) Hyperglycemia due to diabetes mellitus: Assessment and Plan: Non compliant Hyperglycemia due to not using her meds, sepsis Improved with IV hydration and insulin. 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 Ureteral stent in place. Looks like stone has passed and no visible stone seen on CT (7) Elevated d-dimer: Assessment and Plan: D dimer ordered for SOB, chest pain - CTA negative for PE Symptoms resolved. Likely from sepsis and UTI
--- NOTE | 2023-05-09 14:21 | P.CN_ITS ---
Consult Note: HPI Data of Consult Consult date: 05/09/23 Requesting Physician: Shaikh Renetta MD Primary Care Provider: Non-Staff Physician, Consult Narrative Reason for consult: urinary tract infection, ureteral stone, renal stones and pain cc:: CC: Shaikh Renetta MD Review of Systems ROS Status of ROS 10 or more systems reviewed and unremarkable except as noted in history and below PFS PFS Medical History Social History Do you think of yourself as: straight/heterosexual Gender Identity: female Meds Home Medications and Allergies Home Medications Medication Instructions Recorded Confirmed Type dulaglutide 1.5 mg/0.5 mL 1.5 mg subcut .ONCE A WEEK 05/09/23 05/09/23 History subcutaneous pen injector (Trulicity) flash glucose sensor (FreeStyle 05/09/23 05/09/23 History Parveen 2 Sensor kit) insulin glargine 100 unit/mL (3 38 unit subcut BID 05/09/23 05/09/23 History mL) subcutaneous pen (Lantus Solostar U-100 Insulin) metformin 1,000 mg tablet 1,000 mg PO BID 05/09/23 05/09/23 History ondansetron 4 mg disintegrating 4 mg PO PRN 05/09/23 05/09/23 History tablet oxybutynin chloride 5 mg tablet 5 mg PO Q8H PRN bladder spasms 05/09/23 05/09/23 History pen needle, diabetic 31 gauge x 05/09/23 05/09/23 History sumatriptan succinate 50 mg tablet 50 mg PO Q2H PRN migraine headache 05/09/23 05/09/23 History tamsulosin 0.4 mg capsule 0.4 mg PO Q24H 05/09/23 05/09/23 History Allergies Allergy/AdvReac Type Severity Reaction Status Date / Time metronidazole [From Flagyl] Allergy Mild Rash Verified 05/08/23 22:56 Exam Constitutional Vital Signs - 24 hr 05/08/23 22:56 05/08/23 23:49 05/09/23 01:08 Temperature 98.6 F 97.6 F Pulse Rate Pulse Rate [Monitor] 126 H Respiratory Rate 32 H Blood Pressure 110/60 Blood Pressure [Left Arm] Blood Pressure [Right Arm] 110/80 H Pulse Oximetry 97 97 Oxygen Delivery Method Room Air Room Air 05/08/23 22:52 05/08/23 23:00 05/08/23 23:10 Temperature Pulse Rate 135 H 125 H Pulse Rate [Monitor] Respiratory Rate 48 H Blood Pressure Blood Pressure [Left Arm] Blood Pressure [Right Arm] Pulse Oximetry 86 L 99 99 Oxygen Delivery Method 05/08/23 23:43 05/08/23 23:43 05/09/23 00:12 Temperature Pulse Rate 119 H Pulse Rate [Monitor] Respiratory Rate 20 Blood Pressure 124/87 H 124/62 H Blood Pressure [Left Arm] Blood Pressure [Right Arm] Pulse Oximetry 100 Oxygen Delivery Method 05/09/23 00:37 05/09/23 00:40 05/09/23 00:50 Temperature Pulse Rate 109 H 111 H 108 H Pulse Rate [Monitor] Respiratory Rate 22 16 11 L Blood Pressure Blood Pressure [Left Arm] Blood Pressure [Right Arm] Pulse Oximetry Oxygen Delivery Method 05/09/23 01:00 05/09/23 01:10 05/09/23 01:20 Temperature Pulse Rate 101 H 103 H 101 H Pulse Rate [Monitor] Respiratory Rate 15 17 18 Blood Pressure Blood Pressure [Left Arm] Blood Pressure [Right Arm] Pulse Oximetry Oxygen Delivery Method 05/09/23 01:30 05/09/23 01:40 05/09/23 01:50 Temperature Pulse Rate 105 H 104 H 101 H Pulse Rate [Monitor] Respiratory Rate 19 21 19 Blood Pressure Blood Pressure [Left Arm] Blood Pressure [Right Arm] Pulse Oximetry Oxygen Delivery Method 05/09/23 02:00 05/09/23 02:10 05/09/23 02:20 Temperature Pulse Rate 103 H 106 H 97 H Pulse Rate [Monitor] Respiratory Rate 23 21 17 Blood Pressure Blood Pressure [Left Arm] Blood Pressure [Right Arm] Pulse Oximetry 99 98 97 Oxygen Delivery Method 05/09/23 02:30 05/09/23 03:26 05/09/23 03:13 Temperature 97.7 F 97.7 F Pulse Rate 97 H 101 H 101 H Pulse Rate [Monitor] Respiratory Rate 14 18 18 Blood Pressure Blood Pressure [Left Arm] 118/80 H 118/80 H Blood Pressure [Right Arm] 110/80 H Pulse Oximetry 100 97 97 Oxygen Delivery Method Room Air Room Air 05/09/23 03:13 05/09/23 02:53 05/09/23 05:30 Temperature 97.7 F 99 F Pulse Rate 101 H 109 H Pulse Rate [Monitor] 101 H Respiratory Rate 18 20 Blood Pressure Blood Pressure [Left Arm] 118/80 H 120/75 H Blood Pressure [Right Arm] 110/80 H Pulse Oximetry 97 97 96 Oxygen Delivery Method Room Air Room Air Room Air 05/09/23 05:32 05/09/23 06:25 05/09/23 08:13 Temperature 99 F Pulse Rate 109 H 107 H 106 H Pulse Rate [Monitor] Respiratory Rate 20 Blood Pressure Blood Pressure [Left Arm] 120/75 H Blood Pressure [Right Arm] Pulse Oximetry 96 Oxygen Delivery Method Room Air 05/09/23 10:06 05/09/23 12:00 05/09/23 13:59 Temperature 98.4 F Pulse Rate 113 H 94 H 96 H Pulse Rate [Monitor] Respiratory Rate 16 Blood Pressure Blood Pressure [Left Arm] 108/69 Blood Pressure [Right Arm] Pulse Oximetry 95 Oxygen Delivery Method Room Air Bladder/kidney exam: CVA tenderness Other: left CVA tenderness Results Labs Labs: Short CBC 05/08/23 05/09/23 Range/Units 23:35 06:55 WBC 12.3 H 13.1 H (4.0-11.0) 10^3/uL Hgb 10.9 L 9.4 L (12.0-16.0) g/dL Hct 33.8 L 29.9 L (36.0-48.0) % Plt Count 343 273 (150-450) 10^3/uL BMP 05/08/23 05/09/23 23:35 06:55 Sodium 132 L 137 Potassium 2.9 L* 3.2 L Chloride 99 105 Carbon Dioxide 18.7 L 20.5 L BUN 9.0 4.0 L Creatinine 1.06 H 0.55 Glucose 332 H 137 H Calcium 8.7 7.7 L Liver Function 05/08/23 Range/Units 23:35 Total Bilirubin 0.7 (0.2-1.0) mg/dL AST 13 L (15-37) U/L ALT 17 (14-59) U/L Alkaline Phosphatase 94 (46-116) U/L Albumin 3.1 L (3.4-5.0) g/dL Urine 05/08/23 Range/Units 23:10 Urine Color Brown A (YELLOW) Urine Clarity Clear (CLEAR) Urine pH 6.0 (5.0-9.0) Ur Specific [place] >=1.030 A (1.005-1.025) Urine Protein >=300 A (NEG/TRACE) mg/dL Urine Glucose (UA) 500 A (NEGATIVE) mg/dL Assessment and Plan Assessment and Plan (1) UTI (urinary tract infection): Assessment and Plan: this lady seems to have a urinary tract infection after getting stent placement several weeks ago. Her white count has increased from 12-13,000. She has been on Rocephin. Urine culture is pending. She has been afebrile and clinically she is feeling much better today. Urologic standpoint, it is okay for her to be discharged. I would consider putting her on Levaquin 500 mg by mouth daily until her procedure next Friday with Dr. Avalos pending her urine culture results. Qualifiers: Hematuria presence: with hematuria Urinary tract infection type: site unspecified Qualified Code(s): N39.0 - Urinary tract infection, site not specified; R31.9 - Hematuria, unspecified (2) Kidney stones: Assessment and Plan: on her original CAT scan done several weeks ago, she has a few nonobstructing stones in both kidneys. These are not seen on CAT scans done with IV contrast. Her smaller ureteral stone may also have been blurred from her IV contrast. Plan okay for home from urology standpoint with a prescription for daily Levaquin until her urology procedure next Friday. 30 minutes of clinical time was spent reviewing her films, chart, examining the patient and talking with her. Thank you for letting me take part in her care.
[2023-05-09] MEDS: LACTATED RINGER'S SOLUTION 1,000 ML 125 ML IV (15:30)
[2023-05-09] MEDS: ONDANSETRON PF 4 MG/2 ML VIAL IV (17:16)
--- NOTE | 2023-05-13 10:49 | CM.DCFOLLOWU ---
FIRST ATTEMPT AT DISCHARGE CALL BACK AND NUMBER PROVIDED IN CHART WOULD NOT GO THROUGH. UNABLE TO COMPLETE D/C FOLLOW UP CALL AT THIS TIME.
== END 2023-05-09 18:00 | disposition home or self-care (01) ==
LOC: ER 05-09 01:46 → MS 05-09 13:40
PROVIDERS: Internal Medicine; Admitting Provider Internal Medicine; Emergency Provider Emergency Medicine; Visit Provider Internal Medicine
DX: A41.51 Sepsis due to Escherichia coli [E. coli] (principal); N39.0 Urinary tract infection, site not specified; E87.6 Hypokalemia; Z87.442 Personal history of urinary calculi; E11.65 Type 2 diabetes mellitus with hyperglycemia; N20.0 Calculus of kidney; R79.1 Abnormal coagulation profile; R94.31 Abnormal electrocardiogram [ECG] [EKG]; N17.9 Acute kidney failure, unspecified; R31.9 Hematuria, unspecified; T38.3X6A Underdosing of insulin and oral hypoglycemic [antidiabetic] drugs, initial encounter; Z91.128 Patient's intentional underdosing of medication regimen for other reason; Z79.84 Long term (current) use of oral hypoglycemic drugs; Z79.4 Long term (current) use of insulin; Z79.899 Other long term (current) drug therapy; Z96.0 Presence of urogenital implants
CPT/HCPCS: 36415; 71045; 71275; 74176; 80048; 80053; 81003; 81015; 82948; 83605; 84145; 84484; 85025; 85027; 85378; 87040; 87086; 87150; 87186; 93005; 96365; 96366; 96375; 99285; G0378; Q9967

== ENCOUNTER 2023-05-14 11:18 | Day surgery (SDC) | payer OTHER, SELFPAY ==
[2023-05-14] VITALS (8 sets, daily range): BP systolic 101–127; BP diastolic 66–90; PULSE 75–86; RESP 9–18; TEMP 36.3; O2SAT 92–100; BMI 31.0
[2023-05-14 11:43] LABS: Glucometer 140 mg/dL (74-106)
[2023-05-14 11:51] LABS: HCG Qualitative NEGATIVE (NEGATIVE)
[2023-05-14] MEDS: LACTATED RINGER'S SOLUTION 1,000 ML 50 ML IV (11:58)
[2023-05-14] MEDS: LEVOFLOXACIN IN DEXTROSE 5 % 500 MG/100 ML PIGGYBACK 100 MG IV (12:39)
--- NOTE | 2023-05-14 12:45 | P.URON_ITS ---
Urology Surgery Operative Note Operative Note Procedure Date: 05/14/23 Time Out Performed: yes Pre-op Diagnosis: Left ureteral stones with hydronephrosis Post-op Diagnosis: Left ureteral stones with hydronephrosis Procedures performed: 1. Cystoscopy, left retrograde pyelogram, left ureteroscopy with laser lithotripsy, stone basket extraction 2. Left ureteral stent removal and placement Anesthesia: GETA (LMA, Luz Barth CRNA, Dr. Jaswinder Schneider ) Primary Surgeon: Pat Avalos Complications: none Estimated blood loss (mL): 0 Findings: Small bladder capacity with 1-2+ trabeculations. Mild meatal stenosis. Left mid ureteral stone ~ 6x9mm impacted into the ureteral mucosa successfully laser lithotripsied and basket extracted. Mild debris within urine. Mild proximal hydronephrosis without filling defects. Specimens: left ureteral stone Drains: 6Fr x 22-30 JJ left ureteral stent Incision: none Indications for Procedures: 42 year old female with DM2 was recently diagnosed with 2 obstructing left mid ureteral stones (largest 6 mm) and UTI s/p cystoscopy, left ureteral stent placement by Dr. Chavez on 04/19/23. She was evaluated in clinic and after discussion of risks/benefits of management options, she elected to proceed with definitive stone treatment as above. Risks were discussed including but not limited to bleeding, pain, infection, damage to surrounding structures, inability to treat all stones, stricture, and need for additional procedures. She understands the stent is not permanent and needs to be removed or exchanged within 3 months to prevent encrustation and infection. She opts for stent string, and understands early removal may result in pain, obstruction and infection. Detailed description of Procedure: After informed consent was obtained, the patient was brought to the operating suite and transferred onto the operating table in supine position. Sequential compression devices were placed on bilateral lower extremities and general anesthesia LMA was induced. She received the appropriate dose of preoperative IV antibiotics based on recent culture and allergies. She was positioned in the modified dorsolithotomy position with the appropriate pressure points padded, prepped and draped in the usual sterile fashion for this procedure. An operative timeout was performed confirming the patient's identity, procedure, laterality, safety checks, and all present agreed to proceed. Spot radiographic imaging confirmed left ureteral stent position. Unable to clearly view stone. I began by inserting a 22Fr cystoscope with 30 degree lens into the patient's urethra and bladder with findings below. No bladder tumors, lesions or stones noted. Attention was turned to the left ureteral orifice and indwelling stent was brought to the meatus with flexible graspers. A Sensorwire was inserted through the stent up to the renal pelvis confirmed on fluoroscopy and the stent was removed in its entirety. A semirigid ureteroscope was inserted alongside the wire until the impacted mid ureteral stone was encountered, light yellow/crystalized. A 272 micron Holmium laser fiber was used to break the stone into smaller fragments and removed them with a 2.4-zero tip basket. A ureteroscopy to the proximal ureter/renal pelvis confirmed no stone fragments r emained. The renal pelvis was decompressed. Contrast was injected for retrograde pyelogram confirming no filling defects or extravasation of contrast. Pull down ureteroscopy confirmed no stones remained in the ureter. The bladder was irrigated of stones and sent for stone analysis. A 6Fr x 22-30 cm JJ ureteral stent on string was placed over the wire with adequate curl in the renal pelvis and bladder on fluoroscopic and direct visualization. The bladder was inspected one last time to ensure no undue trauma and stent was appropriate. The bladder was drained and cystoscope removed. The string was secured off of tension to the right thigh with Tegaderm dressing. The patient was awakened from anesthesia and sent to PACU in stable condition. Plan: DC home, remove stent by the string at home in 5 days. Cont empiric abx. Follow up in 6 wks with renal US. Other Provider present: No Post Operative care instructions: Remove stent by string at home in 5 days. F/u 6 wks with renal US Attending Doc Confirm Attending Attestation: Yes
[2023-05-14] MEDS: IOHEXOL 240 MG/ML - 10 ML VIAL INJ (13:35)
[2023-05-20 18:07] LABS: Calcium Oxalate Dihydrate 90 % (.); Calcium Oxalate Monohydrate 10 % (.)
== END 2023-05-14 15:00 | disposition home or self-care (01) ==
PROVIDERS: Visit Provider Urology
PROC: (CPT 918; principal; 2023-05-14 12:30)
DX: N13.2 Hydronephrosis with renal and ureteral calculous obstruction (principal); N32.89 Other specified disorders of bladder; E11.9 Type 2 diabetes mellitus without complications; Z87.440 Personal history of urinary (tract) infections; F32.A Depression, unspecified; Z87.442 Personal history of urinary calculi; Z90.49 Acquired absence of other specified parts of digestive tract; Z79.4 Long term (current) use of insulin; Z79.84 Long term (current) use of oral hypoglycemic drugs; Z79.899 Other long term (current) drug therapy
CPT/HCPCS: 00918; 52356; 36415; 76000; 82365; 82948; 84703; 99999; C1874; J1170; J2704; Q9966

== ENCOUNTER 2025-01-20 09:30 | Emergency (ER) | payer SELFPAY ==
[2025-01-20 09:32] VITALS: BP 124/89; PULSE 98; TEMP 36.7; O2SAT 97; BMI 33.8
[2025-01-20 09:42] LABS: Glucometer 336 mg/dL (74-106)
--- NOTE | 2025-01-20 09:49 | ED_ITS ---
HPI HPI - General Adult General Chief complaint: Upper Respiratory Infection Stated complaint: fever Time Seen by Provider: 01/20/25 09:37 Source: patient Mode of arrival: walk-in Limitations: no limitations History of Present Illness HPI narrative: The patient is a 44-year-old female is coming to the ER with the main concern of 1 to 2 days history of cough associated with runny nose body aches and sore throat, in addition to that the patient mentioned that she had not had a good appetite for the last 24 hours at least, she mentioned that she is a diabetic who has not been affording her medication for the last month She is denying any symptoms of nausea vomiting or diarrhea but she had no appetite Related Data Home Medications ?Medication ?Instructions ?Recorded ?Confirmed dulaglutide 1.5 mg/0.5 mL 1.5 mg subcut .ONCE A WEEK 05/09/23 05/09/23 subcutaneous pen injector (TeraFirrma) flash glucose sensor (FreeStyle 05/09/23 05/09/23 Parveen 2 Sensor kit) insulin glargine 100 unit/mL (3 38 unit subcut BID 05/09/23 05/09/23 mL) subcutaneous pen (Lantus Solostar U-100 Insulin) metformin 1,000 mg tablet 1,000 mg PO BID 05/09/23 05/12/23 ondansetron 4 mg disintegrating 4 mg PO PRN 05/09/23 05/09/23 tablet oxybutynin chloride 5 mg tablet 5 mg PO Q8H PRN bladder spasms 05/09/23 05/09/23 pen needle, diabetic 31 gauge x 05/09/23 05/09/23 sumatriptan succinate 50 mg tablet 50 mg PO Q2H PRN migraine headache 05/09/23 05/09/23 tamsulosin 0.4 mg capsule 0.4 mg PO Q24H 05/09/23 05/09/23 gabapentin 100 mg capsule 100 mg PO TID 05/12/23 05/12/23 Previous Rx's ?Medication ?Instructions ?Recorded metformin 1,000 mg tablet 1,000 mg PO BID #20 tabs 01/20/25 oseltamivir 75 mg capsule (Tamiflu) 75 mg PO BID 5 days #10 caps 01/20/25 Allergies Allergy/AdvReac Type Severity Reaction Status Date / Time metronidazole (From Flagyl) Allergy Mild Rash Verified 01/20/25 09:36 cephalexin (From Keflex) Allergy Unknown Rash Verified 01/20/25 09:36 latex Allergy Unknown Rash Verified 01/20/25 09:36 adhesive tape AdvReac Unknown Rash Verified 01/20/25 09:36 Opioid HPI Opioid Management Most Recent Opioid Data: Last Pain Scale 5 05/14/23 11:29 05/14/23 Review of Systems ROS Status of ROS 10 or more systems reviewed and unremark able except as noted in history and below PFSH PFSH Medical History (Updated 01/20/25 @ 10:50 by Keisha Madison MD) Ureteral stone with hydronephrosis ?N13.2 - Hydronephrosis with renal and ureteral calculous obstruction (ICD- 10) Hypocalcemia ?E83.51 - Hypocalcemia (ICD-10) Depression ?F32.A - Depression, unspecified (ICD-10) Elevated d-dimer ?R79.89 - Other specified abnormal findings of blood chemistry (ICD-10) Diabetes ?E11.9 - Type 2 diabetes mellitus without complications (ICD-10) Kidney stones ?N20.0 - Calculus of kidney (ICD-10) Surgical History (Updated 05/14/23 @ 11:36 by Anna Dean) Hx of bilateral breast reduction surgery ?Z98.890 - Other specified postprocedural states (ICD-10) H/O tubal ligation ?Z98.51 - Tubal ligation status (ICD-10) History of cholecystectomy ?Z90.49 - Acquired absence of other specified parts of digestive tract (ICD- 10) Status post cystoscopy with ureteral stent placement ?Z96.0 - Presence of urogenital implants (ICD-10) Family History (Updated 05/12/23 @ 14:08 by Bridgett Sabillon) Other Family history of diabetes mellitus Family history of hypertension Family history of stroke Social History (Updated 05/12/23 @ 14:08 by Bridgett Sabillon) Do you use any of these nicotine containing products: vaping products Little interest or pleasure in doing things: not at all Feeling down, depressed, or hopeless: not at all Do you think of yourself as: straight/heterosexual Gender Identity: female Exam Narrative Exam Narrative: Nurses notes and vital signs reviewed and patient is not hypoxic. General: Well-appearing and in no apparent distress. Skin: Warm, dry, no pallor noted. No rash. Head: Normocephalic, atraumatic. Neck: Supple, non-tender. Eye: Pupils are equal, round and EOMI. No scleral icterus. Ears, Nose, Mouth, and Throat: TM are clear, no nasal mucosal hypertrophy. Oral mucosa is moist, no posterior oropharynx erythema, uvula is mid-line Cardiovascular: Regular Rate and Rhythm without murmur, gallop or rub. Respiratory: No accessory muscle use or respiratory distress. Lungs are clear to auscultation, no wheezing, rales or rhonchi Chest Wall: no tenderness Back: No midline thoracic or lumbar vertebral tenderness. No CVA tenderness Musculoskeletal: normal ROM, no calf or popliteal tenderness, no lower extremity edema/swelling GI: Abdomen is soft, non-distended. Normal bowel sounds. No masses appreciated. No tenderness to palpation. No rebound, guarding, or rigidity noted. Neurological: A&O x4. No cranial nerve dysfunction observed. . Constitutional Vital Signs, click to edit/add: Last Vital Signs Temp 98.1 F 01/20/25 09:32 Pulse 85 01/20/25 10:31 Resp 20 01/20/25 10:31 BP 124/81 01/20/25 10:31 Pulse Ox 98 01/20/25 10:31 O2 Del Method Room Air 01/20/25 10:31 Course Vital Signs Vital signs: Vital Signs Temperature 98.1 F 01/20/25 09:32 Pulse Rate 98 H 01/20/25 09:32 Respiratory Rate 20 01/20/25 09:32 Blood Pressure 124/89 01/20/25 09:32 Pulse Oximetry 97 01/20/25 09:32 Oxygen Delivery Method Room Air 01/20/25 09:32 Temperature 98.1 F 01/20/25 09:32 Pulse Rate 85 01/20/25 10:31 Respiratory Rate 20 01/20/25 10:31 Blood Pressure 124/81 01/20/25 10:31 Pulse Oximetry 98 01/20/25 10:31 Oxygen Delivery Method Room Air 01/20/25 10:31 Medical Decision Making MDM Narrative Medical decision making narrative: Patient is influenza A positive CBC shows no acute significant pathology chemistry shows some hypokalemia that was corrected with p.o. potassium in addition to some mild acidosis The patient urine shows some ketones and that while she was provided with 2 L of fluid Blood sugar responded only to fluid and it was 280 the last reading The patient was started again on her metformin instructed to take her medication and hydrate very well The patient was instructed that she need to obtain a primary care doctor to start getting her medication prescribed I did explain to her the negative effect of the hyperglycemia and her vision as well as her kidney in the future The patient to come back to the ER if she did not feel better or had any new symptoms The patient is to follow up with primary care physician in next 2-3 days or to return to the emergency department should any of the signs or symptoms worsen or new symptoms develop. The patient agrees with the following Diagnosis and Treatment plan and the patient will be discharged home. Lab Data Labs: Lab Results 01/20/25 01/20/25 01/20/25 Range/Units 09:40 09:42 09:55 WBC 6.0 (4.0-11.0) 10^3/uL RBC 4.71 (4.20-5.40) 10^6/uL Hgb 11.3 L (12.0-16.0) g/dL Hct 36.0 (36.0-48.0) % MCV 76.4 L (81.0-99.0) fL MCH 24.0 L (26.7-34.0) pg MCHC 31.4 (29.9-35.2) g/dL RDW 17.5 H (11.0-15.0) % Plt Count 268 (150-450) 10^3/uL MPV 10.7 (9.5-13.5) fL Neut % (Auto) 63.4 (43.0-75.0) % Lymph % (Auto) 25.6 (20.5-60.0) % [place] % (Auto) 10.6 (1.7-12.0) % Eos % (Auto) 0.0 L (0.9-7.0) % Baso % (Auto) 0.2 (0.2-2.0) % Neut # (Auto) 3.8 (1.4-6.5) 10^3/uL Lymph # (Auto) 1.5 (1.2-3.8) 10^3/uL [place] # (Auto) 0.6 (0.3-0.8) 10^3/uL Eos # (Auto) 0.0 (0.0-0.7) 10^3/uL Baso # (Auto) 0.0 (0.0-0.1) 10^3/uL Abs Immat Gran (auto) 0.01 (0.00-0.03) 10^3/uL Imm/Tot Granulo (auto) 0.2 (0.0-0.5) % Sodium 132 L (136-145) mmol/L Potassium 3.3 L (3.5-5.1) mmol/L Chloride 98 (98-107) mmol/L Carbon Dioxide 20.5 L (21.0-32.0) mmol/L Anion Gap 16.8 BUN 6.0 L (7.0-18.0) mg/dL Creatinine 0.80 (0.55-1.02) mg/dL Est GFR ( Amer) >60 (>=60 mL/min/1.73m^2) Est GFR (Non-Af Amer) >60 (>=60 mL/min/1.73m^2) BUN/Creatinine Ratio 7.5 Glucose 348 H (74-106) mg/dL Calcium 8.1 L (8.5-10.1) mg/dL Total Bilirubin 0.3 (0.2-1.0) mg/dL AST 101 H (15-37) U/L ALT 83 H (14-59) U/L Alkaline Phosphatase 103 (46-116) U/L Total Protein 7.3 (6.4-8.2) g/dL Albumin 3.2 L (3.4-5.0) g/dL Globulin 4.1 g/dL Albumin/Globulin Ratio 0.8 Serum HCG, Qual Negative (NEGATIVE) Urine Color (YELLOW) Urine Clarity (CLEAR) Urine pH (5.0-9.0) Ur Specific [place] (1.005-1.025) Urine Protein (NEG/TRACE) mg/dL Urine Glucose (UA) (NEGATIVE) mg/dL Urine Ketones (NEGATIVE) mg/dL Urine Occult Blood (NEGATIVE) Urine Nitrite (NEGATIVE) Urine Bilirubin (NEGATIVE) Urine Urobilinogen (0.2-1.0) EU/dL Ur Leukocyte Esterase (NEGATIVE) Urine RBC (0-2) #/HPF Urine WBC (NONE SEEN) #/HPF Ur Squamous Epith Cells (NONE/RARE) #/LPF Urine Crystals (None Seen) #/HPF Urine Bacteria (NONE SEEN) #/HPF Urine Casts (NONE SEEN) #/LPF Urine Mucus (NONE SEEN) Ur Culture Indicated? Influenza Type A Ag Positive A Influenza Type B Ag Negative SARS-CoV-2 Ag (CV2AG) Negative (NEGATIVE) POC Glucose 336 H (74-106) mg/dL 01/20/25 01/20/25 Range/Units 10:50 10:55 WBC (4.0-11.0) 10^3/uL RBC (4.20-5.40) 10^6/uL Hgb (12.0-16.0) g/dL Hct (36.0-48.0) % MCV (81.0-99.0) fL MCH (26.7-34.0) pg MCHC (29.9-35.2) g/dL RDW (11.0-15.0) % Plt Count (150-450) 10^3/uL MPV (9.5-13.5) fL Neut % (Auto) (43.0-75.0) % Lymph % (Auto) (20.5-60.0) % [place] % (Auto) (1.7-12.0) % Eos % (Auto) (0.9-7.0) % Baso % (Auto) (0.2-2.0) % Neut # (Auto) (1.4-6.5) 10^3/uL Lymph # (Auto) (1.2-3.8) 10^3/uL [place] # (Auto) (0.3-0.8) 10^3/uL Eos # (Auto) (0.0-0.7) 10^3/uL Baso # (Auto) (0.0-0.1) 10^3/uL Abs Immat Gran (auto) (0.00-0.03) 10^3/uL Imm/Tot Granulo (auto) (0.0-0.5) % Sodium (136-145) mmol/L Potassium (3.5-5.1) mmol/L Chloride (98-107) mmol/L Carbon Dioxide (21.0-32.0) mmol/L Anion Gap BUN (7.0-18.0) mg/dL Creatinine (0.55-1.02) mg/dL Est GFR ( Amer) (>=60 mL/min/1.73m^2) Est GFR (Non-Af Amer) (>=60 mL/min/1.73m^2) BUN/Creatinine Ratio Glucose (74-106) mg/dL Calcium (8.5-10.1) mg/dL Total Bilirubin (0.2-1.0) mg/dL AST (15-37) U/L ALT (14-59) U/L Alkaline Phosphatase (46-116) U/L Total Protein (6.4-8.2) g/dL Albumin (3.4-5.0) g/dL Globulin g/dL Albumin/Globulin Ratio Serum HCG, Qual (NEGATIVE) Urine Color Yellow (YELLOW) Urine Clarity Clear (CLEAR) Urine pH 6.0 (5.0-9.0) Ur Specific [place] 1.025 (1.005-1.025) Urine Protein Trace (NEG/TRACE) mg/dL Urine Glucose (UA) 500 A (NEGATIVE) mg/dL Urine Ketones >=80 A (NEGATIVE) mg/dL Urine Occult Blood Moderate A (NEGATIVE) Urine Nitrite Positive A (NEGATIVE) Urine Bilirubin Negative (NEGATIVE) Urine Urobilinogen 1.0 (0.2-1.0) EU/dL Ur Leukocyte Esterase Negative (NEGATIVE) Urine RBC 10-20 A (0-2) #/HPF Urine WBC 5-10 A (NONE SEEN) #/HPF Ur Squamous Epith Cells Few A (NONE/RARE) #/LPF Urine Crystals None seen (None Seen) #/HPF Urine Bacteria Large A (NONE SEEN) #/HPF Urine Casts None seen (NONE SEEN) #/LPF Urine Mucus None seen (NONE SEEN) Ur Culture Indicated? Yes-[facility] [place] Influenza Type A Ag Influenza Type B Ag SARS-CoV-2 Ag (CV2AG) (NEGATIVE) POC Glucose 285 H (74-106) mg/dL Discharge Plan Discharge Chief Complaint: Upper Respiratory Infection Clinical Impression: Flu, Hyperglycemia Patient Disposition: Home, Self-Care Time of Disposition Decision: 10:50 Prescriptions / Home Meds: New metformin 1,000 mg tablet 1,000 mg PO BID Qty: 20 0RF oseltamivir [Tamiflu] 75 mg capsule 75 mg PO BID 5 Days Qty: 10 0RF No Action gabapentin 100 mg capsule 100 mg PO TID sumatriptan succinate 50 mg tablet 50 mg PO Q2H PRN (Reason: migraine headache) tamsulosin 0.4 mg capsule 0.4 mg PO Q24H metformin 1,000 mg tablet 1,000 mg PO BID oxybutynin chloride 5 mg tablet 5 mg PO Q8H PRN (Reason: bladder spasms) ondansetron 4 mg tablet,disintegrating 4 mg PO PRN insulin glargine [Lantus Solostar U-100 Insulin] 100 unit/mL (3 mL) insulin pen 38 unit SUBCUT BID Trulicity 1.5 mg/0.5 mL pen injector 1.5 mg subcut .ONCE A WEEK (DME) FreeStyle Parveen 2 Sensor Kit MISCELLANEOUS (DME) pen needle, diabetic 31 gauge x 15/64 needle MISCELLANEOUS Print Language: Lithuanian Instructions: Influenza (DC), Diabetic Hyperglycemia (ED) Referrals: Physician,Non-Staff, MD [Primary Care Provider] - 1 week Discharge Date/Time: 01/20/25 12:40
[2025-01-20] MEDS: 0.9 % SODIUM CHLORIDE 1,000 ML 1000 ML IV ×2 (09:55→11:38)
[2025-01-20 10:06] LABS: Basophils Percent Auto 0.2 % (0.2-2.0); Hemoglobin 11.3 g/dL (12.0-16.0); Immature Granulocytes Abs Auto 0.01 10^3/uL (0.00-0.03); Immature Granulocytes Pct Auto 0.2 % (0.0-0.5); Lymphocytes Absolute Auto 1.5 10^3/uL (1.2-3.8); Lymphocytes Percent Auto 25.6 % (20.5-60.0); Mean Corpuscular HGB Conc 31.4 g/dL (29.9-35.2); Mean Corpuscular Volume 76.4 fL (81.0-99.0); Mean Platelet Volume 10.7 fL (9.5-13.5); Monocytes Absolute Auto 0.6 10^3/uL (0.3-0.8); Monocytes Percent Auto 10.6 % (1.7-12.0); Neutrophils Absolute Auto 3.8 10^3/uL (1.4-6.5); Neutrophils Percent Auto 63.4 % (43.0-75.0); Platelet Count 268 10^3/uL (150-450); Red Blood Count 4.71 10^6/uL (4.20-5.40); Red Cell Distribution Width 17.5 % (11.0-15.0)
[2025-01-20 10:14] LABS: HCG Qualitative NEGATIVE (NEGATIVE); Internal Control Within Normal Limits
[2025-01-20 10:18] LABS: Alanine Aminotransferase 83 U/L (14-59); Albumin Globulin Ratio 0.8; Albumin Level 3.2 g/dL (3.4-5.0); Alkaline Phosphatase 103 U/L (46-116); Anion Gap 16.8; Aspartate Amino Transferase 101 U/L (15-37); BUN Creatinine Ratio 7.5; Bilirubin Total 0.3 mg/dL (0.2-1.0); Calcium 8.1 mg/dL (8.5-10.1); Carbon Dioxide 20.5 mmol/L (21.0-32.0); Chloride 98 mmol/L (98-107); Estimated GFR (African America >60 (>=60 mL/min/1.73m^2); Estimated GFR (Non-African Ame >60 (>=60 mL/min/1.73m^2); Globulin 4.1 g/dL; Glucose 348 mg/dL (74-106); Potassium 3.3 mmol/L (3.5-5.1); Sodium 132 mmol/L (136-145); Total Protein 7.3 g/dL (6.4-8.2)
[2025-01-20 10:19] LABS: Influenza Virus A Antigen Positive; Influenza Virus B Antigen Negative; Internal Control Within Normal Limits; SARS-CoV-2 Ag NEGATIVE (NEGATIVE)
[2025-01-20 10:31] VITALS: BP 124/81; PULSE 85; O2SAT 98
[2025-01-20 10:51] LABS: Glucometer 285 mg/dL (74-106)
[2025-01-20] MEDS: POTASSIUM BICARBONATE/CIT 25 MEQ TABLET EFF PO (10:58)
[2025-01-20 11:08] LABS: Bilirubin Urine NEGATIVE (NEGATIVE); Blood Urine MODERATE (NEGATIVE); Clarity Urine CLEAR (CLEAR); Color Urine YELLOW (YELLOW); Glucose Urine UA 500 mg/dL (NEGATIVE); Ketones Urine >=80 mg/dL (NEGATIVE); Leukocyte Esterase Urine NEGATIVE (NEGATIVE); Nitrite Urine POSITIVE (NEGATIVE); Protein Urine TRACE mg/dL (NEG/TRACE); Specific Gravity Urine 1.025 (1.005-1.025)
[2025-01-20 11:09] LABS: Urine Microscopic Indicated YES
[2025-01-20 11:18] LABS: Bacteria Urine LARGE #/HPF (NONE SEEN); Crystals Seen? None Seen #/HPF (None Seen); Mucus Urine NONE SEEN (NONE SEEN); Squamous Epithelial Cell Urine FEW #/LPF (NONE/RARE)
[2025-01-20 11:19] LABS: Cast Seen? NONE SEEN #/LPF (NONE SEEN); Urine Culture Indicated YES-FRMC
== END 2025-01-20 12:40 | disposition home or self-care (01) ==
PROVIDERS: Emergency Provider Emergency Medicine
DX: J10.1 Influenza due to other identified influenza virus with other respiratory manifestations (principal); E11.65 Type 2 diabetes mellitus with hyperglycemia; Z79.4 Long term (current) use of insulin; Z79.84 Long term (current) use of oral hypoglycemic drugs; Z98.51 Tubal ligation status; Z90.49 Acquired absence of other specified parts of digestive tract; F17.290 Nicotine dependence, other tobacco product, uncomplicated; E87.6 Hypokalemia
CPT/HCPCS: 36415; 80053; 81001; 84703; 85025; 87086; 87150; 87186; 87804; 87811; 99284